=== PATIENT | female | born 2000 | race Hispanic/Latino ===

== ENCOUNTER 2024-03-05 18:03 | Emergency (ER) | payer SELFPAY ==
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
[2024-03-05 18:38] VITALS: BP 109/84; PULSE 80; RESP 16; TEMP 37.3; O2SAT 100
== END 2024-03-05 18:36 | disposition short-term general hospital (02) ==
PROVIDERS: Emergency Provider Nurse Practitioner
DX: S81.011A Laceration without foreign body, right knee, initial encounter (principal); S61.214A Laceration without foreign body of right ring finger without damage to nail, initial encounter; S61.216A Laceration without foreign body of right little finger without damage to nail, initial encounter; W26.0XXA Contact with knife, initial encounter
CPT/HCPCS: 99215; G0463